=== PATIENT | female | born 1935 | race Caucasian/White ===

== ENCOUNTER 2017-02-20 08:08 | Inpatient (IN) | payer OTHER, MEDICARE ==
[2017-02-20] VITALS (9 sets, daily range): BP systolic 114–150
[~2017-02-20] VITALS: Ht 157.5 cm; Wt 52.2 kg
[~2017-02-20 08:08] MED LIST: cefOXitin SODIUM 2 GM in D5W 100 ML IV ONE
[2017-02-20] MEDS ORDERED: cefOXitin 1 GM IVPB PREMIX 100 ML IV ONE ×2 (08:23→21:30)
[2017-02-20] MEDS ORDERED: ALVIMOPAN 12 MG CAPSULE PO ONE (08:24)
[2017-02-20] MEDS ORDERED: NA PHOS,M-B/NA PHOS,DI-BA 118 ML (FLEET ENEMA) RC ONE (09:30)
[2017-02-20] MEDS ORDERED: LOSA1TAB3 PO (10:07)
[2017-02-20] MEDS ORDERED: GLUCAGON,HUMAN RECOMBINANT 1 MG VIAL IV ONE (11:34)
[2017-02-20] MEDS ORDERED: ROCURONIUM BROMIDE 10 MG/ML (ZEMURON) IV ONE (11:34)
[2017-02-20] MEDS ORDERED: LABETALOL 100 MG/ 20ML VIAL IVP ONE (11:34)
[2017-02-20] MEDS ORDERED: SEVOFLURANE 15 MIN GAS INH ONE (11:34)
[2017-02-20] MEDS ORDERED: DEXAMETHASONE SOD PHOSPHATE 4 MG/ML VIAL IVP ONE (11:34)
[2017-02-20] MEDS ORDERED: BUPIVACAINE /PF 0.25% 30 ML VIAL INJ ONE (11:34)
[2017-02-20] MEDS ORDERED: KETOROLAC TROMETHAMINE 30 MG VIAL IVP ONE (11:34)
[2017-02-20] MEDS ORDERED: PROPOFOL 200MG/ 20ML VIAL (DIPRIVAN) IV ONE (11:34)
[2017-02-20] MEDS ORDERED: NS 1000 ML BAG IV ONE (11:34)
[2017-02-20] MEDS ORDERED: METOCLOPRAMIDE HCL 10 MG/2 ML VIAL IVP ONE (11:34)
[2017-02-20] MEDS ORDERED: NS IRRIG SOLN 1000 ML IR ONE (11:34)
[2017-02-20] MEDS ORDERED: LR 1,000 ML IV.SOLN IV ONE (11:34)
[2017-02-20] MEDS ORDERED: fentaNYL CITRATE/PF 100 MCG/2 ML AMP IVP ONE (11:34)
[2017-02-20] MEDS ORDERED: MIDAZOLAM HCL 5 MG/5 ML VIAL IVP ONE (11:34)
[2017-02-20] MEDS ORDERED: LR 1,000 ML IV ONE (13:32)
[2017-02-20] MEDS ORDERED: DIPHENHYDRAMINE INJ 50 MG/ML VIAL IVP PRN (13:45)
[2017-02-20] MEDS ORDERED: fentaNYL CITRATE/PF 100 MCG/2 ML AMP IVP PRN (13:45)
[2017-02-20] MEDS ORDERED: ONDANSETRON HCL 4 MG/2 ML VIAL IVP PRN ×3 (13:45→14:15)
[2017-02-20] MEDS ORDERED: NALBUPHINE HCL 10 MG/ML AMP IVP PRN (13:45)
[2017-02-20] MEDS ORDERED: ePHEDrine sulfate 50 MG/ML VIAL IVP PRN (13:45)
[2017-02-20] MEDS ORDERED: NALOXONE HCL 0.4 MG/ML AMP (NARCAN) IVP PRN (13:45)
[2017-02-20] MEDS ORDERED: HYDROmorphone 1 MG INJ. 1 MG/ML AMPUL IVP PRN (14:15)
[2017-02-20] MEDS ORDERED: HYDROcodone/ACETAMIN 5-325 MG TAB (NORCO/ VICODIN) PO PRN (14:15)
[2017-02-20] MEDS ORDERED: ACETAMINOPHEN 325 MG TABLET PO PRN (14:15)
[2017-02-20 14:51] LABS: HEMATOCRIT 36.6 % (36-48); HEMOGLOBIN 12.7 g/dL (12.0-16.0)
[2017-02-20 15:07] LABS: ANION GAP 8 (5-15); CALCIUM 8.3 mg/dL (8.4-11.0); CHLORIDE 99 mmol/L (98-107); CREATININE 1.21 mg/dL (0.55-1.30); GLUCOSE 219 mg/dL (70-99); POTASSIUM 3.6 mmol/L (3.5-5.1); SODIUM SERUM 132 mmol/L (136-145); UREA NITROGEN, BLOOD 11 mg/dL (8-21)
[2017-02-20] MEDS: HYDROcodone/ACETAMIN 5-325 MG TAB (NORCO/ VICODIN) PO PRN ×2 (15:52→21:44)
[2017-02-20] MEDS ORDERED: COMMUNICATION ORDER XX SCH (16:15)
[2017-02-20] MEDS: D5/0.45 NS 1,000 ML IV SCH (18:43)
[2017-02-20] MEDS: cefOXitin SODIUM 2 GM in D5W 100 ML IV SCH (21:00)
[2017-02-20] MEDS: ALVIMOPAN 12 MG CAPSULE PO SCH (21:44)
[2017-02-20] MEDS: FAMOTIDINE PF 20 MG/2 ML VIAL IVP SCH (21:45)
[2017-02-21] MEDS: D5/0.45 NS 1,000 ML IV SCH ×2 (05:34→11:23)
[2017-02-21 08:02] LABS: EOSINOPHILS % (AUTO) 0.1 % (0.0-4.0); HEMATOCRIT 35.9 % (36-48); HEMOGLOBIN 12.4 g/dL (12.0-16.0); LYMPHOCYTES % (AUTO) 6.3 % (20.5-51.5); MEAN CORPUSCULAR HEMOGLOBIN 32 pg (27-31); MEAN CORPUSCULAR HGB CONC 34 % (32-36); MEAN CORPUSCULAR VOLUME 93 fL (79.0-98.0); MONOCYTES # (AUTO) 1.2 K/uL (0.0-1.0); MONOCYTES % (AUTO) 7.5 % (1.7-9.3); NEUTROPHILS # (AUTO) 13.2 K/uL (1.8-7.7); NEUTROPHILS % (AUTO) 86.1 % (40.0-70.0); PLATELET COUNT (AUTO) 283 K/uL (130-430); RED BLOOD CELL COUNT(AUTO) 3.88 MIL/uL (4.2-6.2); RED CELL DISTRIBUTION WIDTH 12.7 % (9.0-15.0); WHITE BLOOD COUNT (AUTO) 15.4 K/uL (4.8-10.8)
[2017-02-21 08:21] VITALS: BP_SYST 151
[2017-02-21 08:43] LABS: ANION GAP 10 (5-15); CALCIUM 8.6 mg/dL (8.4-11.0); CHLORIDE 98 mmol/L (98-107); CREATININE 1.05 mg/dL (0.55-1.30); GLUCOSE 155 mg/dL (70-99); POTASSIUM 3.7 mmol/L (3.5-5.1); SODIUM SERUM 134 mmol/L (136-145); UREA NITROGEN, BLOOD 11 mg/dL (8-21)
[2017-02-21] MEDS: ENOXAPARIN SODIUM 30 MG/0.3 ML SYRINGE SUBCUT SCH (09:00)
[2017-02-21] MEDS: FAMOTIDINE PF 20 MG/2 ML VIAL IVP SCH ×2 (09:00→22:31)
[2017-02-21] MEDS: ALVIMOPAN 12 MG CAPSULE PO SCH ×2 (09:00→22:31)
[2017-02-21] MEDS: cefOXitin SODIUM 2 GM in D5W 100 ML IV SCH (09:00)
[2017-02-21 09:44] LABS: ALANINE AMINOTRANSFERASE 16 U/L (12-78); ASPARTATE AMINOTRANSFERASE 19 U/L (10-37); TOTAL BILIRUBIN 0.5 mg/dL (0.0-1.0)
[2017-02-21 11:28] VITALS: BP_SYST 150
[2017-02-21 15:33] VITALS: BP_SYST 151
[2017-02-21 20:00] VITALS: BP_SYST 193
[2017-02-21] MEDS ORDERED: LOSARTAN/HYDROCHLOROTHIAZIDE TAB (HYZAAR 50-12.5 MG) PO SCH (21:45)
[2017-02-21] MEDS ORDERED: LOSARTAN/HYDROCHLOROTHIAZIDE TAB (HYZAAR 50-12.5 MG) PO ONE (22:30)
[2017-02-21] MEDS: cloNIDine HCL 0.1 MG TABLET PO PRN (22:31)
[2017-02-22] VITALS (7 sets, daily range): BP systolic 109–175
[2017-02-22] MEDS: D5/0.45 NS 1,000 ML IV SCH ×2 (04:10→04:21)
[2017-02-22] MEDS: HYDROCHLOROTHIAZIDE 12.5 MG CAPSULE (HCTZ) PO SCH (09:29)
[2017-02-22] MEDS: LOSARTAN POTASSIUM 50 MG TABLET (COZAAR) PO SCH (09:29)
[2017-02-22] MEDS: ENOXAPARIN SODIUM 30 MG/0.3 ML SYRINGE SUBCUT SCH (09:30)
[2017-02-22] MEDS: ALVIMOPAN 12 MG CAPSULE PO SCH ×2 (09:30→21:18)
[2017-02-22] MEDS: cloNIDine HCL 0.1 MG TABLET PO PRN (14:10)
[2017-02-22] MEDS: HYDROcodone/ACETAMIN 5-325 MG TAB (NORCO/ VICODIN) PO PRN (14:17)
[2017-02-22] MEDS ORDERED: traZODone HCL 50 MG TABLET (DESYREL) PO PRN (20:15)
[2017-02-22] MEDS ORDERED: MILK OF MAGNESIA 30 ML UDC PO PRN (20:15)
[2017-02-22] MEDS ORDERED: CALCIUM CARBONATE 500 MG/ TAB.CHEW PO PRN (21:15)
[2017-02-22] MEDS ORDERED: NORMAL SALINE 5 ML DISP.SYRIN IVF SCH (22:00)
[2017-02-23 00:44] VITALS: BP_SYST 119
[2017-02-23 04:48] VITALS: BP_SYST 126
[2017-02-23 08:30] VITALS: BP_SYST 134
[2017-02-23] MEDS: LOSARTAN POTASSIUM 50 MG TABLET (COZAAR) PO SCH (09:57)
[2017-02-23] MEDS: ALVIMOPAN 12 MG CAPSULE PO SCH (09:58)
[2017-02-23] MEDS: HYDROCHLOROTHIAZIDE 12.5 MG CAPSULE (HCTZ) PO SCH (09:58)
[2017-02-23 13:16] VITALS: BP_SYST 131
[2017-02-23 13:18] VITALS: BP_SYST 131
[2017-02-23] MEDS ORDERED: HYDR-1189 PO (13:33)
== END 2017-02-23 14:36 | disposition home health service (06) | DRG 331 ==
LOC: SDS 08:08 → SMU 08:08 → SDS 14:29 → SMU 14:30
PROVIDERS: ADMIT Internal Medicine; ATTEND Internal Medicine
PROC: 0DJD8ZZ Inspection of Lower Intestinal Tract, Via Natural or Artificial Opening Endoscopic (ICD-10-PCS; 2017-02-20)
PROC: 0DBN4ZZ Excision of Sigmoid Colon, Percutaneous Endoscopic Approach (ICD-10-PCS; principal; 2017-02-20 10:15)
DX: K62.3 Rectal prolapse (principal); H81.10 Benign paroxysmal vertigo, unspecified ear; K21.9 Gastro-esophageal reflux disease without esophagitis; K62.1 Rectal polyp; M81.0 Age-related osteoporosis without current pathological fracture; Z98.42 Cataract extraction status, left eye; Z98.41 Cataract extraction status, right eye; Z86.73 Personal history of transient ischemic attack (TIA), and cerebral infarction without residual deficits; Z80.8 Family history of malignant neoplasm of other organs or systems
CPT/HCPCS: 36415; 80048; 80053; 85018-TC; 85025; 87081; 88305; 88307; 97110-GP; 97116-GP; 97530-GP; C1727; J0694; J1100; J1170; J1610; J1650; J1885; J2250; J2704; J2765; J3010; J3490; J7030; J7060; J7120